=== PATIENT | female | born 2000 | race African-American/Black ===

== ENCOUNTER 2024-01-12 10:46 | Emergency (ER) | payer MEDICAID ==
[~2024-01-12] VITALS: Ht 162.6 cm; Wt 70.5 kg
[2024-01-12 11:06] VITALS: O2SAT 100
[2024-01-12 12:02] LABS: BASOPHILS % 0.5 % (0.0-2.0); DIFFERENTIAL COMMENT 0; EOSINOPHILS % 0.2 % (0.0-5.0); HEMOGLOBIN. 12.8 g/dL (12.0-16.0); LYMPHOCYTES % 17.5 % (20.0-50.0); MEAN CORPUSCULAR HEMOGLOBIN 26.4 pg (28.0-32.0); MEAN CORPUSCULAR HGB CONC 33.7 g/dL (31.0-37.0); MEAN CORPUSCULAR VOLUME 78.5 fL (81.0-99.0); MEAN PLATELET VOLUME 7.7 fl (7.4-10.4); MONOCYTES % 6.5 % (2.0-8.0); NEUTROPHILS % 75.3 % (40.0-76.0); PLATELET 422 x1000/uL (130-400); RED BLOOD CELL COUNT 4.84 mill/uL (4.2-5.4); RED CELL DISTRIBUTION WIDTH 16.2 % (11.6-14.6); WHITE BLOOD COUNT 10.2 x1000/uL (4.5-11.0)
[2024-01-12 12:03] LABS: CLARITY URINE HAZY (CLEAR); COLOR URINE DARK YELLOW (YELLOW)
[2024-01-12 12:04] LABS: GLUCOSE URINE NEGATIVE (NEGATIVE); KETONES URINE 4+ (NEGATIVE); NITRITE URINE POSITIVE (NEGATIVE); OCCULT BLOOD URINE NEGATIVE (NEGATIVE); PROTEIN URINE 1+ (NEGATIVE); SPECIFIC GRAVITY URINE 1.031 (1.005-1.030)
[2024-01-12 12:05] LABS: LEUKOCYTE ESTERASE URINE TRACE (NEGATIVE)
[2024-01-12 12:12] LABS: CALCIUM 10.3 mg/dL (8.7-10.4); CARBON DIOXIDE 23 mEq/L (21-32); CHLORIDE 104 mEq/L (98-107); POTASSIUM 3.2 mEq/L (3.5-5.1); SODIUM 134 mEq/L (136-145)
[2024-01-12 12:16] LABS: MUCUS URINE 3+ /lpf (< = 2+); SQUAMOUS EPITHELIAL CELL URINE 2+ /lpf (RARE/1+)
[2024-01-12 12:17] LABS: B-HCG QUANTITATIVE > 1000 mIU/mL (<3); CREATININE 0.6 mg/dL (0.6-1.0); GLUCOSE 92 mg/dL (70-105); UREA NITROGEN BLOOD 6 mg/dL (9-23)
[2024-01-12 12:17] LABS: BACTERIA URINE 3+; RBC URINE 0-2 /hpf (0-2); WBC URINE 0-2 /hpf (0-2)
[2024-01-12] MEDS: METOCLOPRAMIDE HCL 10MG TABLET PO ONE (13:19)
[2024-01-12] MEDS ORDERED: POTASSIUM CHLORIDE 20MEQ/PACKET PO ONE (13:30)
[2024-01-12] MEDS ORDERED: DOXY1TAB8 PO (13:46)
[2024-01-12] MEDS ORDERED: CEPH250C2 MT (13:56)
[2024-01-12] MEDS: POTASSIUM CHLORIDE 20MEQ/PACKET PO NR (14:03)
[2024-01-12 14:06] VITALS: BP 106/58; PULSE 77; RESP 19; TEMP 98.4
== END 2024-01-12 14:13 | disposition home or self-care (01) ==
LOC: ER 10:46
DX: O99.281 Endocrine, nutritional and metabolic diseases complicating pregnancy, first trimester (principal); O23.31 Infections of other parts of urinary tract in pregnancy, first trimester; N39.0 Urinary tract infection, site not specified; Z3A.01 Less than 8 weeks gestation of pregnancy
CPT/HCPCS: 80048; 81003; 81025; 84702; 85025; 86850; 86900; 86901; 36415; 76802; 76801; 76817; 99284; J8597; Z7610